=== PATIENT | female | born 1990 | race Caucasian/White ===

== ENCOUNTER 2020-05-03 14:05 | Emergency (ER) | payer OTHER ==
--- NOTE | 2020-05-03 15:23 | ED Physician Documentation ---
History of Present Illness - Stated complaint Stated Complaint: L SIDE NUMBNESS SENT BY - Chief complaint Chief Complaint: Neuro - History obtained from History obtained from: Patient - Additonal information Additional information: Patient presents to the emergency department chief complaint of numbness and fullness on the left side of her head, as well an echoing feeling in her L ear when people talk. Patient also complains of a shooting, tingling sensation in both her left medial arm and her left lateral and medial thigh. The patient states that she was treated about a week and a half ago for "swimmer's ear" and that while the pain from the seem to get better, the numbness and fullness seem to get worse. Patient states that she was not having any other symptoms outside of her head until she began to notice some shooting, tingling sensations in both her left arm and left thigh last night. Patient states she went to bed and woke in the middle of the night with a very strong, tingling sensation on her left. She turned on her right side, but this really did not seem to improve the symptoms much. When patient awoke this morning after sleeping the remainder of the night, she noted that she still had the same sensation, though slightly better than it had been. Patient denies any recent injury. No other neurologic symptoms. He does have a history of severe sciatica on the left, but does not have any pain this time. Patient also notes that the left side of her neck is somewhat chronically tight, and that she has recently had to have her massage the area because it has been bothering her. Patient denies any weakness in any of her extremities. No facial weakness. Patient is very healthy otherwise. No smoking, hypertension, or hyperlipidemia. Patient is not a diabetic. No other complaints at this time. Patient states she has never had this happen to her before. Review of Systems Ten Systems: 10 systems reviewed and negative Constitutional: reports: Reviewed and negative Eyes: reports: Reviewed and negative Ears: reports: Tinnitus/ringing Nose: reports: Reviewed and negative. denies: Rhinorrhea / runny nose, Congestion Throat: reports: Reviewed and negative Cardiac: reports: Reviewed and negative Respiratory: reports: Reviewed and negative GI: reports: Reviewed and negative : reports: Reviewed and negative Skin: reports: Reviewed and negative Musculoskeletal: reports: Reviewed and negative Neurologic: reports: Numbness, Other (Tingling, left arm and leg) Psychiatric: reports: Reviewed and negative Endocrine: reports: Reviewed and negative Immunocompromised: reports: Reviewed and negative PD PAST MEDICAL HISTORY - Past Medical History Past Medical History: No Cardiovascular: None Respiratory: None Neuro: None Endocrine/Autoimmune: None GI: None ORDER ADMINISTRATOR: None : None HEENT: None Psych: None Musculoskeletal: None Derm: None - Past Surgical History Past Surgical History: No - Present Medications Home Medications: Ambulatory Orders Medication Instructions Recorded Confirmed No Known Home Medications 05/03/20 05/03/20 - Allergies Allergies/Adverse Reactions: Allergies Allergy/AdvReac Type Severity Reaction Status Date / Time amoxicillin Allergy Dizziness Verified 05/03/20 14:14 - Social History Does the pt smoke?: No Smoking Status: Never smoker Does the pt drink ETOH?: No Does the pt have substance abuse?: No - Immunizations Immunizations are current?: Yes - POLST Patient has POLST: No PD ED PE NORMAL - Vitals Vital signs reviewed: Yes - General General: Alert and oriented X 3, No acute distress, Well developed/nourished - HEENT HEENT: Atraumatic, PERRL, EOMI, Ears normal, Moist mucous membranes, Other (No facial swelling.) - Neck Neck: Supple, no meningeal sign, No bony TTP, Other (Tenderness and muscular tightness, left trapezius distribution.) - Cardiac Cardiac: RRR, No murmur, Strong equal pulses - Respiratory Respiratory: No respiratory distress, Clear bilaterally - Abdomen Abdomen: Soft, Non tender, Non distended - Back Back: No spinal TTP, Other (Moderate tenderness, L sciatic area) - Derm Derm: Normal color, Warm and dry, No rash - Extremities Extremities: No deformity, No edema, No calf tenderness / cord - Neuro Neuro: Alert and oriented X 3, tongue presser 2-12 intact, No motor deficit, No sensory deficit (Specifically, no sensory deficit left medial arm or left thigh. Normal gait.), Normal speech - Psych Psych: Normal mood, Normal affect Results - Vitals Vitals: Vital Signs - 24 hr 05/03/20 05/03/20 05/03/20 14:10 14:18 16:22 Temperature 36.9 C 36.9 C 36.9 C Heart Rate 86 86 64 Respiratory 18 18 18 Rate Blood Pressure 119/68 119/68 115/73 O2 Saturation 100 100 100 Oxygen O2 Source Room air - Labs Labs: Laboratory Tests 05/03/20 15:31 Sodium 139 Potassium 3.9 Chloride 108 Carbon Dioxide 24 Anion Gap 7.0 BUN 13 Creatinine 0.7 Estimated GFR (MDRD) 97 Glucose 100 Calcium 8.8 - Rads (name of study) CT head Radiology: Final report received, EMP read indepedently, See rad report (mild fluid L mastoid air cells; o/w NAD) PD MEDICAL DECISION MAKING - ED course Complexity details: reviewed results, re-evaluated patient, considered differential, d/w patient ED course: Patient was worked up with labs and CT scan of the brain, all of which were unremarkable. I discussed with the patient that her symptoms do not anatomically indicate a stroke and that she is extremely low risk from this. I am not sure what is causing her extremity tingling. I am also not certain why she feels the echoing in her ear and the numbness in the side of her head. I have advised her to continue her efforts to connect with PCP and also, I have advised her to follow-up with ENT, for whom I have given her contact information. I would advise the patient to speak with her PCP about referral to neurology if the symptoms carry on for more than a week or 2. We have discussed home management of the symptoms, as well as the usual indications for return. Departure - Departure Disposition: 01 Home, Self Care Clinical Impression: Arm paresthesia, left, Left leg paresthesias, Tinnitus of left ear Condition: Stable Instructions: Tinnitus, ED Cervical Radiculopathy, ED Sciatica, ED Paraesthesias Follow-Up: Gregory Paez MD [Physician No Access] - Comments: Your CT scan and labs look very good. As we have discussed, there is no evidence of an emergent condition, and you are very low risk for something like a stroke. Additionally, your symptoms do not sound like what we would expect for even a stroke affecting sensory function. As we have discussed regarding your arm and leg tingling, it is possible that this is due to nerve root compression, that would be somewhat less common to have 2 separate nerve roots compressed at the same time. Heat and massage are the best treatments for this condition, as well as ibuprofen. As far as the ear and face symptoms you are having, ENT and neurology would be the best specialties to sort this out. Please follow-up in ENT as soon as you are able and also, please continue to go through the process of getting set up with a primary care physician through the [facility]. If ENT is not able to help with this, then the next step would be to have your primary care physician arrange for you to follow-up with a neurologist. Discharge Date/Time: 05/03/20 16:24
[2020-05-03 15:53] LABS: CALCIUM 8.8 mg/dL (8.5-10.3); CREATININE 0.7 mg/dL (0.4-1.0)
--- NOTE | 2020-05-03 15:58 | CT Report ---
PROCEDURE: HEAD WO INDICATIONS: dizzy, numbness, tinitis TECHNIQUE: Noncontrast 4.5 mm thick angled axial sections acquired from the foramen magnum to the vertex. For r adiation dose reduction, the following was used: automated exposure control, adjustment of mA and/or kV according to patient size. COMPARISON: None. FINDINGS: Image quality: Excellent. CSF spaces: Basal cisterns are patent. No extra-axial fluid collections. Ventricles are normal in size and shape. Brain: No intracranial hemorrhage, mass, or mass effect. Hugo-white matter interface is normal. Skull and face: Calvarium and visualized facial bones are intact, without suspicious lesions. Sinuses: Visualized sinuses are clear. There is mild partial fluid opacification of the left mastoid air cells. IMPRESSION: 1. No acute intracranial abnormality. 2. Mild partial fluid opacification of the left mastoid air cells may reflect a mild mastoiditis. Reviewed by: Chau Guerra MD on 05/03/2020 3:57 PM [facility] Approved by: Chau Guerra MD on 05/03/2020 3:57 PM PST Station ID: [id number]
[2020-05-03 16:23] VITALS: BP 115/73
== END 2020-05-03 16:24 | disposition home or self-care (01) ==
LOC: ED 14:05
DX: R20.2 Paresthesia of skin (principal); H93.12 Tinnitus, left ear
CPT/HCPCS: 36415; 70450; 80048; 99284; 99285

== ENCOUNTER 2020-06-27 08:00 | Outpatient (CLI) | payer OTHER ==
[2020-06-27 18:27] LABS: BASOPHILS # (AUTO) 0.1 10^3/uL (0.0-0.1); EOSINOPHILS % (AUTO) 0.8 %; HCT - HEMATOCRIT 39.7 % (37.0-47.0); HGB - HEMOGLOBIN 13.1 g/dL (12.0-16.0); LYMPHOCYTES # (AUTO) 2.1 10^3/uL (1.5-3.5); LYMPHOCYTES % (AUTO) 40.1 %; MEAN CORPUSCULAR HEMOGLOBIN 30.8 pg (27.0-31.0); MEAN CORPUSCULAR VOLUME 93.2 fL (81.0-99.0); MEAN PLATELET VOLUME 10.8 fL (7.9-10.8); MONOCYTES # (AUTO) 0.4 10^3/uL (0.0-1.0); NEUTROPHILS # (AUTO) 2.6 10^3/uL (1.5-6.6); NEUTROPHILS % (AUTO) 50.9 %; PLT - PLATELET COUNT 289 10^3/uL (130-450); RED BLOOD COUNT 4.26 10^6/uL (4.20-5.40); RED CELL DISTRIBUTION WIDTH 12.5 % (12.0-15.0); WHITE BLOOD COUNT 5.2 x10^3/uL (4.8-10.8)
[2020-06-27 18:50] LABS: ALBUMIN 4.2 g/dL (3.2-5.5); ALBUMIN/GLOBULIN RATIO 1.2 (1.0-2.2); BILIRUBIN,TOTAL 0.5 mg/dL (0.2-1.0); CALCIUM 10.1 mg/dL (8.5-10.3); CREATININE 0.8 mg/dL (0.4-1.0); POTASSIUM 4.3 mmol/L (3.5-5.0); TOTAL PROTEIN 7.6 g/dL (6.7-8.2)
[2020-06-27 18:59] LABS: THYROID STIMULATING HORMONE 1.6 uIU/mL (0.34-5.60)
== END 2020-06-27 23:59 | disposition home or self-care (01) ==
LOC: LAB.WCP 08:00
PROVIDERS: ATTEND Registered Nurse
DX: G51.9 Disorder of facial nerve, unspecified (principal); L65.9 Nonscarring hair loss, unspecified; Z86.32 Personal history of gestational diabetes
CPT/HCPCS: 36415; 80053; 84403; 84443; 85025

== ENCOUNTER 2020-07-12 14:02 | Outpatient (CLI) | payer OTHER ==
--- NOTE | 2020-07-12 14:32 | XRAY Report ---
PROCEDURE: Chest 2 View X-Ray INDICATIONS: CHEST PX, UNSPECIFIED TECHNIQUE: 2 view(s) of the chest. COMPARISON: None. FINDINGS: Surgical changes and devices: None. Lungs and pleura: No pleural effusions or pneumothorax. Lungs are clear. Mediastinum: Mediastinal contours are normal. Heart size is normal. Bones and chest wall: No suspicious bony abnormalities. Soft tissues appear unremarkable. IMPRESSION: No acute disease Reviewed by: Loco Winn MD on 07/12/2020 2:31 PM PDT Approved by: Loco Winn MD on 07/12/2020 2:31 PM PDT Station ID: [id number]
== END 2020-07-12 23:59 | disposition home or self-care (01) ==
LOC: DI.N 14:02
PROVIDERS: ATTEND Nurse Practitioner
DX: R07.9 Chest pain, unspecified (principal)

== ENCOUNTER 2020-09-15 10:12 | Outpatient (CLI) | payer OTHER ==
--- NOTE | 2020-09-15 13:40 | CARDIAC PROCEDURE NOTE ---
Stress Test Report Service Date: 09/15/20 Ordering Provider: Araceli Bo NP Indication for Test: Chest pain, cardiac arrhythmia Cardiac Risk Factors: Family history of early heart disease in her grandfather (in his 50s). Type of Stress Test: Exercise Treadmill Test (ETT) Procedure: After signing informed consent, the patient underwent a Ihsan-protocol treadmill stress test. No cardiac imaging was ordered with this test. Resting heart rate: 68 Peak HR: 164 (87% predicted maximum heart rate for age) Resting blood pressure: 94/64. Peak blood pressure: 139/60 The patient exercised for 9 minutes on a Ihsan-protocol treadmill stress test. She achieved a peak heart rate of 164 (87% p.m. HR) and 10.16 METS. Patient had mild shortness of breath. She had no chest pain. She rated her perceived exertion at 12-14/20 on the Teodoro scale at peak. Oxygen saturation was 93 to 99% on room air throughout the test. Resting EKG: Sinus rhythm, within normal limits. EKG at peak: No new ST-segment or T-wave changes develop. Summary: 1) Normal resting EKG. 2) Normal stress test with no EKG changes to suggest ischemia. 3) No significant arrhythmias were seen. 4) Fair-Good exercise tolerance. Impression: 1) Normal stress test. 2) This patient's overall cardiac risk: Low. Recommendations: 1) Consider obtaining a 24-hour Holter to evaluate her "palpitations". 2) Consider obtaining a complete Echo with Doppler to evaluate cardiac structure and function.
== END 2020-09-15 10:13 | disposition home or self-care (01) ==
LOC: DI 10:12
PROVIDERS: ATTEND Registered Nurse
DX: I49.9 Cardiac arrhythmia, unspecified (principal); R07.9 Chest pain, unspecified; Z82.49 Family history of ischemic heart disease and other diseases of the circulatory system
CPT/HCPCS: 93016; 93018

== ENCOUNTER 2021-01-26 09:12 | Outpatient (CLI) | payer OTHER ==
--- NOTE | 2021-01-26 09:43 | CARDIAC PROCEDURE NOTE ---
Stress Test Report Service Date: 01/26/21 Service Time: 09:30 Ordering Provider: Araceli Bo FNP-C Indication for Test: Assess exercise tolerance and for an ischemic contribution to patient's episodic palpitations, sometimes associated with lightheadedness. 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 She is under increased psychosocial stress with her 's career and recent deployment overseas. She reports that for about 1 year she has had episodic palpitations, that have gradually increased in frequency and severity over the past few months. They are most notable at night upon reclining prior to sleep, but they can also occur during the daytime with a frequency that most recently is about 2-3 times weekly, with no clear precipitating nor alleviating factors. Sometimes when they occur during daytime hours the palpitations can be associated with lightheadedness. -She remains quite physically active and describes a daily exercise regimen that includes nearly an hour of high intensity activities, including 30 minutes on the treadmill and some free weight lifting. Very rarely while doing the latter activity she feels some chest discomfort, but not typically at other times when having her palpitations, and exertion does not provoke her palpitation episodes. -Earlier this spring she was prescribed metoprolol succinate but never actually took it and at a follow-up visit she was prescribed propranolol 10 mg to be taken as needed up to every 8 hours, to better target anxiety. She reports having taken propranolol on 2 or 3 occasions with no real attenuation of her symptoms. She has received a referral for outpatient rhythm monitoring to be done in [place], but has not yet scheduled this testing. Cardiac Risk Factors: Her only classic ASCVD risk factor is minor family history, with maternal grandfather having VT's, stents and cardiac in his 60's; she denies history of hypertension, diabetes, hyperlipidemia and ever cigarette smoking. Type of Stress Test: ETT with Echocardiography Procedure: -Exercise Treadmill Test- After signing informed consent, resting echo images were obtained and the patient performed treadmill exercise using a Ihsan protocol. The patient exercised for 8 minutes 54 seconds and achieved a peak heart rate of 167 (89 percent predicted maximum heart rate for age), and an estimated workload of 10.2 METS. The test was terminated due to fatigue/shortness of breath after having achieved target heart rate. Resting heart rate: 102 Peak heart rate: 167 Normal response to exercise. Resting BP: 112/80 Peak BP: 136/69 Normal BP at rest with increase with exercise that is likely appropriate for age and level of self-reported conditioning. Rhythm during exercise: Sinus throughout, without ectopy. Symptoms: No report of chest discomfort, palpitations or lightheadedness. EKG at rest showed normal sinus rhythm, with left atrial abnormality and borderline QTc interval (467 ms); QRS/ST/T morphologies all within normal range. EKG at peak stress showed no ischemia by EKG criteria. In Recovery heart rate and BP rapidly and normally returned to baseline levels. Echo imaging was performed at rest and with stress will be reported separately. IJavid MD, was present throughout this treadmill stress echocardiogram and supervised it in its entirety. Summary: 1) Exercise tolerance slightly below average for age as evidenced by WEI of 6%, though she did achieve 10.2 METS. 2) Borderline resting EKG, but with interpretable ST segments. 3) Adequate level of exercise was achieved on this treadmill stress test. 4) Likely normal BP response to exercise. 5) No ischemic changes by EKG criteria were seen at peak stress. 6) Echo image interpretation reveals normal left ventricular size and resting systolic function, with appropriate hyperdynamic augmentation in all segments, thus no echo evidence of inducible ischemia. See separate echo report for more detail. CONCLUSIONS: 1) Normal/low risk exercise stress treadmill results. 2) Patient is advised to schedule the recommended ambulatory rhythm monitoring and ascertain that timing of next visit with Ms Bo will allow for the latter to receive the completed monitoring analysis.
== END 2021-01-26 09:13 | disposition home or self-care (01) ==
LOC: DI 09:12
PROVIDERS: ATTEND Registered Nurse
DX: R00.2 Palpitations (principal); I49.9 Cardiac arrhythmia, unspecified; R07.9 Chest pain, unspecified; Z82.49 Family history of ischemic heart disease and other diseases of the circulatory system
CPT/HCPCS: 93350

== ENCOUNTER 2023-04-18 08:00 | Outpatient (CLI) | payer OTHER ==
[2023-04-18 16:25] LABS: BILIRUBIN,URINE NEGATIVE (NEGATIVE); GLUCOSE, URINE (UA) NEGATIVE (NEGATIVE); KETONES,URINE (UA) TRACE mg/dL (NEGATIVE); LEUKOCYTE ESTERASE, URINE NEGATIVE (NEGATIVE); NITRITE,URINE NEGATIVE (NEGATIVE); OCCULT BLOOD,URINE NEGATIVE (NEGATIVE); PH,URINE 5.5 PH (5.0-7.5); PROTEIN,URINE TRACE mg/dL (NEGATIVE); UROBILINOGEN,URINE 0.2 (NORMAL) E.U./dL (NORMAL)
[2023-04-18 16:34] LABS: CLARITY,URINE CLOUDY (CLEAR)
[2023-04-18 16:48] LABS: AMORPHOUS SEDIMENT,UR Marked /LPF; BACTERIA,URINE Rare /HPF (None Seen); RBC,URINE 0-5 /HPF (0-5); SQUAMOUS EPITHELIAL CELL,UR RARE Squamous (<= Few); WBC,URINE 0-3 /HPF (0-5)
== END 2023-04-18 23:59 | disposition home or self-care (01) ==
LOC: LAB.WC 08:00
PROVIDERS: ATTEND Nurse Practitioner
DX: Z34.90 Encounter for supervision of normal pregnancy, unspecified, unspecified trimester (principal)
CPT/HCPCS: 81001; 87086

== ENCOUNTER 2023-04-24 11:46 | Outpatient (CLI) | payer OTHER ==
[2023-04-24 12:20] LABS: BASOPHILS # (AUTO) 0.1 10^3/uL (0.0-0.1); BASOPHILS % (AUTO) 0.8 %; EOSINOPHILS # (AUTO) 0.2 10^3/uL (0.0-0.7); EOSINOPHILS % (AUTO) 2.3 %; HCT - HEMATOCRIT 36.3 % (37.0-47.0); HGB - HEMOGLOBIN 12.5 g/dL (12.0-16.0); LYMPHOCYTES % (AUTO) 25.2 %; MEAN CORPUSCULAR HEMOGLOBIN 30.1 pg (27.0-31.0); MEAN CORPUSCULAR HGB CONC 34.4 g/dL (32.0-36.0); MEAN CORPUSCULAR VOLUME 87.5 fL (81.0-99.0); MEAN PLATELET VOLUME 10.4 fL (7.9-10.8); MONOCYTES # (AUTO) 0.6 10^3/uL (0.0-1.0); MONOCYTES % (AUTO) 7.2 %; NEUTROPHILS % (AUTO) 64.2 %; PLT - PLATELET COUNT 272 10^3/uL (130-450); RED BLOOD COUNT 4.15 10^6/uL (4.20-5.40); RED CELL DISTRIBUTION WIDTH 12.8 % (12.0-15.0); WHITE BLOOD COUNT 7.7 x10^3/uL (4.8-10.8)
[2023-04-25 03:10] LABS: HBsAG SCREEN Negative (Negative)
[2023-04-25 04:09] LABS: HCV AB Non Reactive (Non Reactive)
[2023-04-25 05:12] LABS: HIV SCREEN 4TH GENERATION Non Reactive (Non Reactive); RPR Non Reactive (Non Reactive)
[2023-04-25 09:09] LABS: VARICELLA-ZOSTER AB IGG 167 index (Immune >165)
== END 2023-04-24 11:47 | disposition home or self-care (01) ==
LOC: LAB 11:46
PROVIDERS: ATTEND Nurse Practitioner
DX: Z34.90 Encounter for supervision of normal pregnancy, unspecified, unspecified trimester (principal)
CPT/HCPCS: 36415; 85025; 86592; 86762; 86787; 86803; 86850; 86900; 86901; 87340; 87389

== ENCOUNTER 2023-04-29 15:27 | Outpatient (CLI) | payer OTHER ==
--- NOTE | 2023-04-29 16:57 | Ultrasound Report ---
PROCEDURE: OB 1st Trimester INDICATIONS: POSITIVE TEST OUTSIDE/PRIOR DATING DATA: Last menstrual period (LMP): 02/22/2023. LMP-based estimated date of delivery (HARRIET): 11/29/2023. First dating scan (date and location): 04/29/2023. Estimated date of delivery (HARRIET) from first dating scan: 11/30/2023. TECHNIQUE: Real-time scanning was performed of the fetus and maternal pelvic organs, with image documentation. COMPARISON: None. FINDINGS: Intrauterine gestational sac present. Embryo: Helotes-rump length measures 2.6 cm corresponding to 9 weeks 2 days. Heart rate: 1 60 bpm. bpm. Other: No perigestational fluid collection. Sac is not clearly identified. Measurement variability in dating: +/- 4 weeks by LMP, +/- 7 days by mean sac diameter (use before 6 weeks gestation if crown-rump length not able to be measured), +/- 5 days by crown-rump length (6-12 weeks gestation). Maternal organs: Left ovary is not visualized. IMPRESSION: Single intrauterine is present with gestational age measuring 9 weeks 0 days. Reviewed by: Stacia Dinh MD on 04/29/2023 4:56 PM PST Approved by: Stacia Dinh MD on 04/29/2023 4:56 PM PST Station ID: [id number]
== END 2023-04-29 15:28 | disposition home or self-care (01) ==
LOC: DI 15:27
PROVIDERS: ATTEND Nurse Practitioner
DX: Z34.91 Encounter for supervision of normal pregnancy, unspecified, first trimester (principal)

== ENCOUNTER 2023-05-16 08:00 | Outpatient (CLI) | payer OTHER ==
[2023-05-16 20:19] LABS: CHLAMYDIA TRACHOMATIS DNA NEGATIVE (NEGATIVE); NEISSERIA GONORRHOEAE DNA NEGATIVE (NEGATIVE); TRICHOMONAS VAGINALIS DNA NEGATIVE (NEGATIVE)
== END 2023-05-16 23:59 | disposition home or self-care (01) ==
LOC: LAB.WC 08:00
PROVIDERS: ATTEND Obstetrics & Gynecology
DX: Z11.3 Encounter for screening for infections with a predominantly sexual mode of transmission (principal)
CPT/HCPCS: 87491; 87591; 87661

== ENCOUNTER 2023-05-28 12:01 | Outpatient (CLI) | payer OTHER | END 2023-05-28 12:02 | disposition home or self-care (01) | LOC: LAB 12:01 | PROVIDERS: ATTEND Obstetrics & Gynecology | DX: O09.91 Supervision of high risk pregnancy, unspecified, first trimester (principal) ==

== ENCOUNTER 2023-07-19 15:23 | Outpatient (CLI) | payer OTHER ==
--- NOTE | 2023-07-20 17:59 | Ultrasound Report ---
PROCEDURE: OB Anatomy Scan INDICATIONS: SUPERVISION OF OUTSIDE/PRIOR DATING DATA: Last menstrual period (LMP): 02/22/2023. LMP-based estimated date of delivery (HARRIET): 11/29/2023. First dating scan (date and location): 04/29/2023. Estimated date of delivery (HARRIET) from first dating scan: 11/30/2023. The below data below was generated using the working HARRIET of 11/29/2023 TECHNIQUE: Real-time scanning was performed of the fetus, with image documentation and biometric measurements. Endovaginal scanning: Not performed. COMPARISON: 04/29/2023 FINDINGS: General: A single living intrauterine gestation is present. Presentation: Variable Placenta: Placental position is posterior, without previa. Amniotic fluid index: 12 cm, within normal limits for gestational age. heart rate: 150 beats per minute. Maternal cervical canal: 6.2 cm long; normal length is 2.5 cm or more. biometrics: Biparietal diameter: 4.65 cm, 20 weeks, 0 day. 14.5% Head circumference: 18.3 cm, 20 weeks, 5 days, 27.8% Abdominal circumference: 15.36 cm, 20 weeks, 4 days, 28.8% Femur length: 3.7 cm, 21 weeks, 6 days, 70.7% Estimated gestational age from initial scan: 21 weeks, 4 days Composite gestational age from present scan: 20 weeks, 4 days Estimated weight and percentile: 396.7 g, 48.2% Measurement variability in biometric dating: +/- 10 days from 12-20 weeks gestation, +/- 2 weeks from 20-30 weeks gestation, +/- 3 weeks at 30 weeks gestation or later. Anatomic survey: Neuro: Ventricles are normal at less than 10 mm. Cisterna magna is normal at 3-11 mm. Cerebellum i s normal in size and morphology. Nuchal skin fold: Normal at less than 6 mm between 14 and 20 weeks gestational age. Face: Nose and lips, facial profile are normal. Spine: No evidence for spina bifida. Heart: 4-chambered heart is present, with normal ventricular outflow tracts. Diaphragm: Diaphragm is intact. Stomach: Left-sided stomach is present. Kidneys: No hydronephrosis. Normal is less than 5 mm in 2nd trimester, less than 7 mm in 3rd trimester. Cord: 3 vessel cord has orthotopic insertion. Bladder: Normal in size. Extremities: All 4 extremities are visualized. IMPRESSION: 1. Single live intrauterine gestation with fetus in variable presentation. heart rate is 150 bp m. Normal ELIZABETH at 12.0 cm. Normal growth with estimated weight at 48.2%. 2. Normal anatomic survey. Reviewed by: Clifton Spence MD on 07/20/2023 5:57 PM PDT Approved by: Clifton Spence MD on 07/20/2023 5:57 PM PDT Station ID: [id number]
== END 2023-07-19 15:24 | disposition home or self-care (01) ==
LOC: DI 15:23
PROVIDERS: ATTEND Obstetrics & Gynecology
DX: O09.92 Supervision of high risk pregnancy, unspecified, second trimester (principal)

== ENCOUNTER 2023-08-01 08:00 | Outpatient (CLI) | payer OTHER ==
[2023-08-02 00:53] LABS: BACTERIAL VAGINOSIS DNA POSITIVE (NEGATIVE); CANDIDA GLABRATA DNA POSITIVE (NEGATIVE); CANDIDA GROUP DNA POSITIVE (NEGATIVE); CANDIDA KRUSEI DNA NEGATIVE (NEGATIVE); TRICHOMONAS VAGINALIS DNA NEGATIVE (NEGATIVE)
== END 2023-08-01 23:59 | disposition home or self-care (01) ==
LOC: LAB.WC 08:00
PROVIDERS: ATTEND Obstetrics & Gynecology
DX: N89.8 Other specified noninflammatory disorders of vagina (principal)
CPT/HCPCS: 81514

== ENCOUNTER 2023-09-09 10:50 | Outpatient (CLI) | payer OTHER ==
[2023-09-09 11:00] LABS: HCT - HEMATOCRIT 33.3 % (37.0-47.0); HGB - HEMOGLOBIN 11.4 g/dL (12.0-16.0); MEAN CORPUSCULAR HEMOGLOBIN 31.9 pg (27.0-31.0); MEAN CORPUSCULAR HGB CONC 34.2 g/dL (32.0-36.0); MEAN CORPUSCULAR VOLUME 93.3 fL (81.0-99.0); MEAN PLATELET VOLUME 10.7 fL (7.9-10.8); RED BLOOD COUNT 3.57 10^6/uL (4.20-5.40); RED CELL DISTRIBUTION WIDTH 12.6 % (12.0-15.0); WHITE BLOOD COUNT 9.4 x10^3/uL (4.8-10.8)
[2023-09-10 08:19] LABS: RPR Non Reactive (Non Reactive)
== END 2023-09-09 10:51 | disposition home or self-care (01) ==
LOC: LAB 10:50
PROVIDERS: ATTEND Obstetrics & Gynecology
DX: O09.92 Supervision of high risk pregnancy, unspecified, second trimester (principal)
CPT/HCPCS: 36415; 85027; 86592

== ENCOUNTER 2023-10-15 13:19 | Outpatient (CLI) | payer OTHER ==
[2023-10-15 13:37] LABS: HCT - HEMATOCRIT 32.2 % (37.0-47.0); HGB - HEMOGLOBIN 10.6 g/dL (12.0-16.0); MEAN CORPUSCULAR HEMOGLOBIN 30.8 pg (27.0-31.0); MEAN CORPUSCULAR HGB CONC 32.9 g/dL (32.0-36.0); MEAN CORPUSCULAR VOLUME 93.6 fL (81.0-99.0); MEAN PLATELET VOLUME 11.6 fL (7.9-10.8); RED BLOOD COUNT 3.44 10^6/uL (4.20-5.40); RED CELL DISTRIBUTION WIDTH 13.2 % (12.0-15.0)
[2023-10-15 14:02] LABS: ALBUMIN 3.4 g/dL (3.2-5.5); ALBUMIN/GLOBULIN RATIO 1.1 (1.0-2.2); BILIRUBIN,TOTAL 0.4 mg/dL (0.2-1.0); CALCIUM 8.9 mg/dL (8.5-10.3); CREATININE 0.7 mg/dL (0.6-1.3); POTASSIUM 3.3 mmol/L (3.5-4.5); TOTAL PROTEIN 6.4 g/dL (6.4-8.9)
[2023-10-15 14:11] LABS: CREATININE,URINE 31.3 mg/dL; PROTEIN/CREATININE RATIO,URINE 0.2 (<=0.2)
== END 2023-10-15 13:20 | disposition home or self-care (01) ==
LOC: LAB 13:19
PROVIDERS: ATTEND Nurse Practitioner
DX: O09.893 Supervision of other high risk pregnancies, third trimester (principal); O99.891 Other specified diseases and conditions complicating pregnancy; R10.11 Right upper quadrant pain
CPT/HCPCS: 36415; 80053; 82570; 83615; 84156; 85027

== ENCOUNTER 2023-10-23 12:36 | Outpatient (CLI) | payer OTHER ==
--- NOTE | 2023-10-23 17:30 | Ultrasound Report ---
PROCEDURE: OB Follow up INDICATIONS: ABN GLUCOSE TEST OUTSIDE/PRIOR DATING DATA: Last menstrual period (LMP): 02/22/2023. LMP-based estimated date of delivery (HARRIET): 11/29/2023. First dating scan (date and location): 04/29/2023. Estimated date of delivery (HARRIET) from first dating scan: 11/30/2023. The below data below was generated using the clinical HARRIET of 11/29/2023 TECHNIQUE: Real-time scanning was performed of the fetus, with image documentation and biometric measurements. Endovaginal scanning: Not performed. COMPARISON: 07/19/2023 FINDINGS: General: A single living intrauterine gestation is present. Presentation: Vertex Placenta: Placental position is posterior, without previa. Amniotic fluid index: 13.3 cm, within normal limits for gestational age. heart rate: 143 beats per minute. Maternal cervical canal: 4.6 cm long; normal length is 2.5 cm or more. biometrics: Biparietal diameter: 8.1 cm, 32 weeks 3 days, 4% Head circumference: 30.0 cm, 33 weeks 2 days, 2% Abdominal circumference: 29 cm, 33 weeks 0 days, 12% Femur length: 6.8 cm, 35 weeks 0 days, 49% Estimated gestational age from initial scan: 34 weeks 5 days Composite gestational age from present scan: 33 weeks 3 days Estimated weight and percentile: 2221 g, 17% Measurement variability in biometric dating: +/- 10 days from 12-20 weeks gestation, +/- 2 weeks from 20-30 weeks gestation, +/- 3 weeks at 30 weeks gestation or more. Other: Not applicable. IMPRESSION: 1.Single live intrauterine consistent with 33 weeks and 3 days. 2.Biparietal diameter and head circumference are less than the 10th percentile. Estimated weigh t is at the 17th percentile. Reviewed by: James Schneider MD on 10/23/2023 4:29 PM [facility] Approved by: James Schneider MD on 10/23/2023 4:29 PM [facility] Station ID: [id number]
== END 2023-10-23 12:37 | disposition home or self-care (01) ==
LOC: DI 12:36
PROVIDERS: ATTEND Nurse Practitioner
DX: O99.810 Abnormal glucose complicating pregnancy (principal); Z3A.33 33 weeks gestation of pregnancy

== ENCOUNTER 2023-11-07 08:00 | Outpatient (CLI) | payer OTHER | END 2023-11-07 23:59 | disposition home or self-care (01) | LOC: LAB.WC 08:00 | PROVIDERS: ATTEND Obstetrics & Gynecology | DX: Z36.85 Encounter for antenatal screening for Streptococcus B (principal) | CPT/HCPCS: 87797 ==

== ENCOUNTER 2023-11-22 12:26 | Outpatient (CLI) | payer OTHER ==
--- NOTE | 2023-11-22 19:09 | Ultrasound Report ---
PROCEDURE: OB Follow up INDICATIONS: ABN GLUCOSE TOLERENCE OUTSIDE/PRIOR DATING DATA: Last menstrual period (LMP): 02/22/2023. LMP-based estimated date of delivery (HARRIET): 11/29/2023. First dating scan (date and location): 04/29/2023. Estimated date of delivery (HARRIET) from first dating scan: 11/30/2023. The below data below was generated using the clinical HARRIET of 11/29/2023 TECHNIQUE: Real-time scanning was performed of the fetus, with image documentation and biometric measurements. Endovaginal scanning: Not performed. COMPARISON: 10/23/2023, 07/19/2023, 04/29/2023 FINDINGS: General: A single live intrauterine gestation is present. Presentation: Vertex Placenta: Placental position is posterior, without previa. Amniotic fluid index: 13.6 cm, within normal limits for gestational age. Largest pocket: 4.5 cm heart rate: 130 beats per minute. Maternal cervical canal: 4 cm long; normal length is 2.5 cm or more. biometrics: Biparietal diameter: 8.9 cm equals 36 weeks 2 days Head circumference: 34 cm equals 39 weeks 1 day Abdominal circumference: 35.3 cm equals 39 weeks 2 days Femur length: 7.7 cm equals 39 weeks 2 days Estimated gestational age from initial scan: 39 weeks 0 days Composite gestational age from present scan: 38 weeks 4 days Estimated weight and percentile: 3614 g, 66th percentile Measurement variability in biometric dating: +/- 10 days from 12-20 weeks gestation, +/- 2 weeks from 20-30 weeks gestation, +/- 3 weeks at 30 weeks gestation or more. Other: Not applicable. IMPRESSION: The estimated weight is 3614 g, corresponding to the 66th percentile Reviewed by: Steve Flores MD on 11/22/2023 6:08 PM [facility] Approved by: Steve Flores MD on 11/22/2023 6:08 PM [facility] Station ID: [id number]
== END 2023-11-22 12:27 | disposition home or self-care (01) ==
LOC: DI 12:26
PROVIDERS: ATTEND Nurse Practitioner
DX: O99.810 Abnormal glucose complicating pregnancy (principal); Z3A.38 38 weeks gestation of pregnancy

== ENCOUNTER 2023-11-26 05:50 | Inpatient (IN) | payer OTHER ==
[2023-11-26] MEDS ORDERED: ceFAZolin (2G) 2 GM in SODIUM CHLORIDE 0.9% MINIBAG 100 ML IV ONE (06:00)
[2023-11-26 06:32] LABS: BASOPHILS # (AUTO) 0.1 10^3/uL (0.0-0.1); BASOPHILS % (AUTO) 0.8 %; EOSINOPHILS # (AUTO) 0.1 10^3/uL (0.0-0.7); EOSINOPHILS % (AUTO) 0.8 %; HCT - HEMATOCRIT 33.6 % (37.0-47.0); HGB - HEMOGLOBIN 11.2 g/dL (12.0-16.0); LYMPHOCYTES # (AUTO) 2.2 10^3/uL (1.5-3.5); MEAN CORPUSCULAR HEMOGLOBIN 30.9 pg (27.0-31.0); MEAN CORPUSCULAR HGB CONC 33.3 g/dL (32.0-36.0); MEAN CORPUSCULAR VOLUME 92.8 fL (81.0-99.0); MEAN PLATELET VOLUME 12.1 fL (7.9-10.8); MONOCYTES # (AUTO) 0.5 10^3/uL (0.0-1.0); MONOCYTES % (AUTO) 7.4 %; NEUTROPHILS # (AUTO) 4.4 10^3/uL (1.5-6.6); NEUTROPHILS % (AUTO) 60.6 %; PLT - PLATELET COUNT 195 10^3/uL (130-450); RED BLOOD COUNT 3.62 10^6/uL (4.20-5.40); RED CELL DISTRIBUTION WIDTH 13.1 % (12.0-15.0); WHITE BLOOD COUNT 7.2 x10^3/uL (4.8-10.8)
--- NOTE | 2023-11-26 07:38 | HISTORY & PHYSICAL EXAMINATION ---
Admit History - : 4 Parity: 3 Risk/History: positive: Previous Complications This : positive: Gestational diabetes Smoking Status: Never smoker - Mother's Labs Mother's Blood Type: positive: O Mother's RH: positive: Positive GBS: positive: Group B Step Negative Rubella Status: positive: Equivocal - Other Maternal History Other Maternal History: HPI: Patient is a 33-year-old -0-0-3 at 39 weeks 4 days gestation here for repeat low-transverse section. She has good movement. Denies loss of fluid. No YARBROUGH/BV or RUQP. No vaginal bleeding. Denies nausea and vomiting. Denies urinary urgency or dysuria. All other symptoms reviewed and were negative except per HPI. Course LMP: 02/22/23 HARRIET by LMP: 11/29/23 US:04/29/2023 @ 9+0 c/w LMP Final HARRIET: 11/29/2023 PROBLEMS: Section X3 GDM last 2 pregnancies: -Could not bring herself to start insulin. Started metformin 11/06. - NSTs and monthly growth scans ordered. -10/22: EFW 2220 g, 17%. AC also 17%. Mostly given by head circumference and BPD. FL: 49% HSV - Suppression started at 36 weeks. 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 Now home and very supportive. Daughter Mary- 8th grade Sons Jose and Pasha. 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 Probably moving to [place], [place] in January Pre- Weight:143 BMI: 23.16 Blood type: O+ Antibody: Negative CBC: 12.5/36.3 PLT 272 RUB: Non immune (Equivocal) 11 VZV:Immune HBsAg: NEG HepC: NR RPR/AB-EIA: NR HIV: NR PAP:12/21/20 - normal GC/CT:Negative HSV: Positive Genetic testing:NIPT- Negative AFP: 06/06 Covid:had virus 2020/no vax/declined today Flu:declined FAS:WNL Placenta:posterior w/o previa Cord:3VC ELIZABETH:12cm EFW:396.7g 48.2%ile 50gm OGCT: Normal profiling early. Will repeat in late second trimester. 3HR GTT: TDAP: 09/11 Breast Pump: 09/11 3rd trimester H/H:11.4/32/234 GBS:11/07/23- neg Delivery plan:Repeat scheduled for 11/26/2023. Contraception: not sterilization. PMH Gestational diabetes PSH Previous x 3 OB History -0-0-3 1. 12/30/2009, 41 weeks, section, female, 8 pounds 9 ounces, distress 2. 08/04/2015, 41 weeks, section, male, 8 pounds 6 ounces, failed TOLAC 3. 04/21/2018, 41 weeks, section, male, 6 pounds 11 ounces, repeat section SH Denies tobacco, alcohol, drugs Family History Sister: Psychiatric care Allergies Amoxicillin: Rash Medications Metformin Valtrex Low-dose aspirin Physical exam: General: Alert, oriented, no acute distress Head: Normal cephalic atraumatic Eyes: PERRLA, extraocular motions intact. Respiratory: Normal rate of respiration. No accessory muscle use, normal respiratory effort. Cardiovascular: Regular rate and rhythm Abdomen: Gravid, nontender, nondistended Extremities: Normal range of motion Neuro: Oriented x3. Normal movements Psych: Appropriate mood and affect. Normal judgment and insight FHT: 145 beats minute baseline, moderate barrett-blue variability, accelerations present, no decelerations. Reactive NST [place]: Quiescent Plan 33-year-old -0-0-3 at 39 weeks 4 days gestation here for repeat section 1. Repeat section - section was recommended. Risks, benefits and alternatives were discussed including but not limited to infection, bleeding that may require blood products or hysterectomy for life saving measures, injury to surrounding organs including but not limited to bowel, bladder, ureters, tubes and ovaries and/or the baby. Should injury occur it could require longer/additional surgery to repair. The patient stated understanding and desired to proceed. All questions were answered posed by patient. 2. 39 weeks gestation 3. Gestational diabetes, A2 managed with oral antihyperglycemic's 4. Previous low-transverse section x 3 5. Vulvovaginal HSV - HPI Current EDU 11/29/23 Gestation 39 Weeks and 4 Days 4 Vital Signs Temperature 97.8 F 11/26/23 06:09 Heart Rate 66 11/26/23 06:09 Respiratory Rate 18 11/26/23 06:09 Blood Pressure 111/67 11/26/23 06:09 Temperature 97.8 F 11/26/23 06:09 Heart Rate 66 11/26/23 06:09 Respiratory Rate 18 11/26/23 06:09 Blood Pressure 111/67 11/26/23 06:09 O2 Saturation If not protocol: Oxygen Flow, liters/minute Meds/Allgy - Home Medications Home Medications: Ambulatory Orders Medication Instructions Recorded Confirmed Ferrous Sulfate Liquid [Feosol 5 ml ORAL DAILY 11/25/23 11/25/23 Liquid] Pnv No.121/Iron/Folic Acid 1 tab ORAL DAILY 11/25/23 11/25/23 [ Multivitamin Tablet] metFORMIN [Glucophage] 500 mg ORAL BID 11/25/23 11/25/23 valACYclovir [Valtrex] 500 mg ORAL BID 11/25/23 11/25/23 - Allergies Allergies/Adverse Reactions: Allergies Allergy/AdvReac Type Severity Reaction Status Date / Time amoxicillin Allergy Dizziness Verified 12/11/21 17:20 Physical - Abdominal Exam Vital Signs: Temp Pulse Resp BP Pulse Ox O2 Flow Rate 97.8 F 66 18 111/67 11/26/23 06:09 11/26/23 06:09 11/26/23 06:09 11/26/23 06:09 Plan for Labor - Plan For Labor I expect patient to be DC'd or transferred within 96 hours.: Yes
[2023-11-26] MEDS: ACETAMINOPHEN 500 MG TABLET PO ONE (07:49)
[2023-11-26] MEDS: CITRIC ACID/SODIUM CITRATE 15 ML UDC PO ONE (07:49)
[2023-11-26] MEDS: LACTATED RINGERS 1,000 ML IV SCH (08:04)
--- NOTE | 2023-11-26 08:34 | ANESTHESIA ---
Pre-Anesthesia VS, & Labs - Diagnosis Hx of CS - Procedure Repeat C section Vital Signs: Temp Pulse Resp BP Pulse Ox O2 Flow Rate 37 C 69 16 110/67 98 11/26/23 08:01 11/26/23 08:01 11/26/23 08:01 11/26/23 08:01 11/26/23 08:01 Height: 5 ft 6 in Weight (kg): 82.554 kg Body Mass Index: 29.3 BMI Classification: Overweight - NPO >8 hours - Is Patient ?: Yes - Lab Results Current Lab Results: Laboratory Tests 11/26/23 07:40: POC Whole Bld Glucose 91 11/26/23 06:12: WBC 7.2, RBC 3.62 L, Hgb 11.2 L, Hct 33.6 L, MCV 92.8, MCH 30.9, MCHC 33.3, RDW 13.1, Plt Count 195, MPV 12.1 H, Neut # (Auto) 4.4, Lymph # (Auto) 2.2, [place] # (Auto) 0.5, Eos # (Auto) 0.1, Baso # (Auto) 0.1, Absolute Nucleated RBC 0.00, Nucleated RBC % 0.0 11/26/23 06:12: Blood Type O POSITIVE, Antibody Screen NEGATIVE Lab results reviewed: Yes Fish Bones: 11/26/23 06:12 Home Medications and Allergies Home Medications: Ambulatory Orders Ferrous Sulfate Liquid [Feosol Liquid] 5 ml ORAL DAILY 11/25/23 Pnv No.121/Iron/Folic Acid [ Multivitamin Tablet] 1 tab ORAL DAILY 11/25/23 metFORMIN [Glucophage] 500 mg ORAL BID 11/25/23 valACYclovir [Valtrex] 500 mg ORAL BID 11/25/23 Active Medications Lactated Ringer's (Lr) 1,000 mls @ 125 mls/hr IV .Q8H NAYELY Last Admin: 11/26/23 08:04 Dose: 125 mls/hr Ferrous Sulfate Liquid [Feosol Liquid] 5 ml ORAL DAILY 11/25/23 Pnv No.121/Iron/Folic Acid [ Multivitamin Tablet] 1 tab ORAL DAILY 11/25/23 metFORMIN [Glucophage] 500 mg ORAL BID 11/25/23 valACYclovir [Valtrex] 500 mg ORAL BID 08/05/24 Allergies/Adverse Reactions: Allergies Allergy/AdvReac Type Severity Reaction Status Date / Time amoxicillin Allergy Dizziness Verified 12/11/21 17:20 Anes History & Medical History - Anesthetic History Anesthesia Complications: reports: No previous complications - Medical History Cardiovascular: reports: None, Other (2020, had a stressful period of life, experienced some palpitations and chest pressure; had an echo and a treadmill test which were normal; she hasn't had any problems since) Pulmonary: reports: None Gastrointestinal: reports: None Urinary: reports: None Neuro: reports: None Musculoskeletal: reports: None Endocrine/Autoimmune: reports: Other Blood Disorders: reports: None Skin: reports: None Smoking Status: Never smoker Psychosocial: reports: No issues indicated - Surgical History Gynecologic: reports: section - Obstetrical History : 4 Parity: 3 Events: reports: Previous Complications: reports: Gestational diabetes Results - Echo Results Echo Results: Report reviewed Exam General: Alert, Oriented x3 Dental: WNL Mouth Openin Fingerbreadth Neck Mobility: Normal Mallampati classification: II Thyromental Distance: 4-6 cm Respiratory: Lungs clear Cardiovascular: Regular rate Plan Anesthesia Type: Spinal Consent for Procedure(s) Verified and Reviewed: Yes Code Status: Attempt Resuscitation ASA classification: 2-Mild systemic disease Is this case an emergency?: No
[2023-11-26] MEDS ORDERED: HYDROmorphone 0.5 MG/0.5 ML SYRINGE IVP PRN (08:35)
[2023-11-26] MEDS ORDERED: NALOXONE 0.4 MG/ML VIAL IVP PRN (08:35)
[2023-11-26] MEDS ORDERED: ATROPINE ABBOJECT 1 MG/10 ML SYRINGE IVP PRN (08:35)
[2023-11-26] MEDS ORDERED: ONDANSETRON 4 MG/2 ML VIAL IVP PRN (08:35)
[2023-11-26] MEDS ORDERED: ePHEDrine 50 MG/ML VIAL IVP PRN (08:35)
[2023-11-26] MEDS ORDERED: MORPHINE 2 MG/ML CARPUJECT IVP PRN (08:35)
[2023-11-26] MEDS ORDERED: METOCLOPRAMIDE 10 MG/2 ML VIAL IVP PRN (08:35)
[2023-11-26] MEDS ORDERED: LACTATED RINGERS 1,000 ML IV SCH ×2 (09:00→13:00)
[2023-11-26] MEDS ORDERED: OXYTOCIN/SODIUM CHLORIDE 500 ML IV ONE (09:45)
[2023-11-26] MEDS ORDERED: PHENYLEPHRINE 10 MG/ML VIAL ONE (09:45)
[2023-11-26] MEDS ORDERED: ePHEDrine 50 MG/ML VIAL IVP ONE (09:54)
[2023-11-26] MEDS ORDERED: OXYTOCIN 10 UNIT/ML VIAL ONE (09:55)
[2023-11-26] MEDS ORDERED: ROPIVACAINE 0.5% PF 20 ML VIAL ONE (10:11)
--- NOTE | 2023-11-26 11:27 | PHARMACY PROGRESS NOTE ---
- Best Possible Medication History Admit Date and Time: 11/26/23 0559 Processed by: Pharmacy (Medication Reconciliation completed by Marketing Analytics ManagerBriseida.) Medications reviewed in ED?: No Medication History completed: Yes Patient Interview: Completed Secondary Source(s): Physician records, Insurance records As the person ultimately responsible for medication therapy, providers are able to order a medication from an existing home medication list in [facility] via the "Reconcile Routine" prior to Confirmation of that medication by manager sales support. Such practice is discouraged except when the physician, in their clinical judgment, deems that a medical need exists for a medication without regard to previous use.
[2023-11-26] MEDS ORDERED: SODIUM CHLORIDE 0.9% 10 ML VIAL IVP ONE ×2 (11:40→11:47)
[2023-11-26] MEDS ORDERED: MIDAZOLAM 2 MG/2 ML VIAL ONE (12:01)
[2023-11-26] MEDS ORDERED: fentaNYL 100 MCG/2 ML VIAL ONE (12:01)
[2023-11-26] MEDS ORDERED: KETAMINE 200 MG/20 ML VIAL ONE (12:06)
[2023-11-26] MEDS: LACTATED RINGERS 1,000 ML IV ONE (12:41)
--- NOTE | 2023-11-26 12:46 | OPERATIVE REPORT ---
Operative Report - General Admit Date: 11/26/23 Procedure Date: 11/26/23 Planned Procedure: intraoperative simple cystotomy repair Pre-Op Diagnosis: Bladder injury Procedure Performed: Simple Cystotomy repair Post Op Diagnosis: Bladder Injury - Procedure Note Primary Surgeon: Christian Secondary Surgeon: Lon Anesthesia Technique: Epidural Pathology: none Estimated Blood Loss (mL): 2 Indications: Intraoperative consult Findings: 1cm anterior bladder wall injury Complications: none - Other Other Information/Narrative: Urology was contacted intraoperatively while the patient was undergoing a section. No prior urologic history was identified. Dr. Forrest noted a 1 cm anterior cystotomy after his section procedure. The patient already had a [address] At time presentation patient was on the table with a Pfannenstiel incision, and excellent exposure of her urologic system. A 1 cm anterior cystotomy was identified. 0 Vicryl stay sutures were placed on either side of the cystotomy and this was then lengthened inferiorly approximately 5 cm. We then inspected the bladder itself and saw no posterior cystotomy. Her ureteral orifices were identified and we could see squirting of clear yellow urine from both the left and right ureteral orifices. We then closed the cystotomy in 2 layers with 3-0 Vicryl suture. The first layer was a mucosal layer. The bladder was backfilled with 120 cc of sterile saline and no leak was identified. The patient was then handed back to Dr. Forrest and his team. The plan will be to have the patient have a catheter in place for 1 weeks time. She will have a CT cystogram to confirm adequate healing
[2023-11-26] MEDS ORDERED: ONDANSETRON ODT 4 MG TABLET TL PRN ×2 (12:51)
[2023-11-26] MEDS ORDERED: SIMETHICONE CHEW 80 MG TABLET PO PRN (12:51)
[2023-11-26] MEDS ORDERED: SODIUM CHLORIDE FLUSH 0.9% 10 ML SYRINGE IVP PRN (12:51)
[2023-11-26] MEDS ORDERED: OXYTOCIN/SODIUM CHLORIDE 500 ML IV PRN (12:51)
--- NOTE | 2023-11-26 12:57 | OPERATIVE REPORT ---
Operative Report - General Admit Date: 11/26/23 Procedure Date: 11/26/23 Planned Procedure: Repeat low-transverse section Pre-Op Diagnosis: Previous low-transverse section Procedure Performed: Repeat low-transverse section Cystotomy Cystotomy repair Post Op Diagnosis: Status post repeat low-transverse section - Procedure Note Primary Surgeon: Evangelista Forrest MD Secondary Surgeon: ANNABELLE Gore Anesthesia Provider: Tito Dubois CRNA Anesthesia Technique: Spinal Pathology: None IV Fluids (mL): 2,000 Estimated Blood Loss (mL): 750 Urine Output (mL): 350 Findings: Dense adhesions from the uterus to anterior abdominal wall. Gutters could not be visualized. Uterus and tubes not visualized. Cystotomy noted on backfilling bladder. Repaired per Dr. Alves's notes. Complications: Cystotomy - Other Other Information/Narrative: Patient was a 33-year-old G4, P3 39 weeks gestation who presented for induction of labor secondary to gestational diabetes. History is complicated by 3 previous sections. section was recommended. Risks, benefits and alternatives were discussed including but not limited to infection, bleeding that may require blood products or hysterectomy for life saving measures, injury to surrounding organs including but not limited to bowel, bladder, ureters, tubes and ovaries and/or the baby. Should injury occur it could require longer/additional surgery to repair. The patient stated understanding and desired to proceed. All questions were answered posed by patient. Prior to being taken to the OR, 2 grams of cefazolin IV was administered. The patient was taken to the operating room where regional anesthesia was found to be adequate. She was then prepared and draped in the usual sterile fashion in the dorsal supine position with a leftward tilt displacing the uterus. Carter was draining to gravity. SCDs were on bilateral lower extremities. Time out was taken. A pfannenstiel skin incision was then made with the scalpel and carried through to the underlying layer of fascia. There was dense scar tissue making dissection very difficult. The superior aspect of the facial incision was then grasped with the Lisa clamps, elevated and the underlying rectus muscles dissected off sharply, but the uterus was adhered to the anterior abdominal wall and only a small window was created. The bladder was adhered to the anterior abdominal wall wall up to the maternal right. There is very little differentiation between the uterus and other layers of the abdominal wall, but once identifying, this was incised and entered bluntly. The uterine incision was then extended bluntly laterally. Artificial rupture of membranes demonstrated clear fluid. The bladder blade was removed. The fetus was in a cephalic presentation. The infants head delivered atraumatically. The anterior shoulders were delivered followed by the posterior shoulders then the remainder of the body. The infants mouth and nose were bulb suctioned. The umbilical cord was clamped times two and cut. The was handed to the pediatric team. The placenta was removed with gentle traction. Oxytocin was administered. The uterus was unable to be exteriorized, so it was cleared of all clots and debris in situ. The uterine incision was inspected and found to be without any extensions and was repaired with 0 Vicryl in a running, locked fashion. A second imbricating layer was performed. Upon inspection, the repaired hysterotomy was found to be hemostatic. The uterus was firm. At that point, due to the difficult dissection and concern of the location of the bladder adhered to the scar tissue, the bladder was backfilled and a small, less than 1 cm cystotomy was noted. At that point I called Dr. Gonzales from urology to come and assess. Please see his note for procedure details, but we further opened the bladder and assess ureteral patency. This was then repaired. The gutters were unable to be accessed. The muscle layer was examined and found to be hemostatic. The fascia was reapproximated with 0 Vicryl in a running fashion. The subcutaneous tissue was closed with 2-0 Vicryl. The skin was closed in a subcuticular fashion with 4-0 Monocryl. The patient tolerated the procedure well. Sponge, lap and needle counts were correct times three. The patient was taken to the recovery room in stable condition. I appreciate the assistance of ANNABELLE Gore, Long Gonzales and alek cruz MD during this procedure, and the assistance in retraction, visualization, dissection, and overall assistance during the case were instrumental to the patient's wellbeing.
[2023-11-26] MEDS: fentaNYL 100 MCG/2 ML VIAL IVP PRN (13:07)
--- NOTE | 2023-11-26 13:57 | ANESTHESIA POST OP EVALUATION ---
Anesthesia Post Eval - Post Anesthesia Eval Vitals: Last Vital Signs Temp 36.4 C L 11/26/23 13:33 Pulse 60 11/26/23 13:33 Resp 16 11/26/23 13:33 BP 99/63 11/26/23 13:33 Pulse Ox 97 11/26/23 13:33 O2 Flow Rate CV Function Including HR & BP: Stable Pain Control: Satisfactory Nausea & Vomiting: Negative Mental Status: Baseline Respiratory Status: Airway Patent Hydration Status: Satisfactory Anesthesia Complications: None
[2023-11-26] MEDS: KETOROLAC 30 MG/ML VIAL IVP SCH (14:08)
[2023-11-26] MEDS: ACETAMINOPHEN 500 MG TABLET PO SCH (16:04)
[2023-11-26] MEDS ORDERED: SODIUM CHLORIDE FLUSH 0.9% 10 ML SYRINGE IVP SCH (17:00)
[2023-11-26] MEDS: SOLIFENACIN SUCCINATE 5 MG TABLET PO SCH (18:30)
[2023-11-27] MEDS: DOCUSATE SODIUM 100 MG CAPSULE PO SCH (00:22)
[2023-11-27 05:35] LABS: BASOPHILS % (AUTO) 0.3 %; EOSINOPHILS % (AUTO) 0.3 %; HCT - HEMATOCRIT 31.8 % (37.0-47.0); HGB - HEMOGLOBIN 10.4 g/dL (12.0-16.0); LYMPHOCYTES # (AUTO) 1.2 10^3/uL (1.5-3.5); LYMPHOCYTES % (AUTO) 11.9 %; MEAN CORPUSCULAR HEMOGLOBIN 31.1 pg (27.0-31.0); MEAN CORPUSCULAR HGB CONC 32.7 g/dL (32.0-36.0); MEAN CORPUSCULAR VOLUME 95.2 fL (81.0-99.0); MONOCYTES # (AUTO) 0.7 10^3/uL (0.0-1.0); MONOCYTES % (AUTO) 6.4 %; NEUTROPHILS # (AUTO) 8.3 10^3/uL (1.5-6.6); NEUTROPHILS % (AUTO) 80.6 %; PLT - PLATELET COUNT 152 10^3/uL (130-450); RED BLOOD COUNT 3.34 10^6/uL (4.20-5.40); RED CELL DISTRIBUTION WIDTH 13.2 % (12.0-15.0); WHITE BLOOD COUNT 10.3 x10^3/uL (4.8-10.8)
--- NOTE | 2023-11-27 13:04 | PROVIDER PROGRESS NOTE ---
Subjective - General Admit Date: 11/26/23 Procedure Date: 11/26/23 Post Op Days: 1 Procedure Performed: cystotomy repair - Review of Systems Drain Type: castanon Drain Output Description: cyu Approximate mls Output: 2800 General: positive: No symptoms - Other Other Information/Narrative: Patient states she is doing well. No issues. Catheter is not annoying her. She has noted no spasms. Seen today with her, her children and her Objective - Patient Data Reviewed Vital Signs: Yes Vital Signs: Vital Signs x48h Temp Pulse Resp BP Pulse Ox 11/27/23 09:50 37.1 C 74 16 123/69 98 Weight: Weight 11/25/23 11/26/23 11/27/23 23:59 23:59 23:59 Weight (kg) 82.554 kg Intake & Output: Intake and Output Totals x24h 11/25/23 11/26/23 11/27/23 23:59 23:59 23:59 Intake Total 1000 500 Output Total 1425 2350 Balance -425 -1850 - Lab Results Lab Results: 11/27/23 05:18 Other Lab Results: Lab Results x24hrs 11/27/23 Range/Units 05:18 WBC 10.3 (4.8-10.8) x10^3/uL RBC 3.34 L (4.20-5.40) 10^6/uL Hgb 10.4 L (12.0-16.0) g/dL Hct 31.8 L (37.0-47.0) % MCV 95.2 (81.0-99.0) fL MCH 31.1 H (27.0-31.0) pg MCHC 32.7 (32.0-36.0) g/dL RDW 13.2 (12.0-15.0) % Plt Count 152 (130-450) 10^3/uL MPV 12.0 H (7.9-10.8) fL Neut # (Auto) 8.3 H (1.5-6.6) 10^3/uL Lymph # (Auto) 1.2 L (1.5-3.5) 10^3/uL [place] # (Auto) 0.7 (0.0-1.0) 10^3/uL Eos # (Auto) 0.0 (0.0-0.7) 10^3/uL Baso # (Auto) 0.0 (0.0-0.1) 10^3/uL Absolute Nucleated RBC 0.00 x10^3/uL Nucleated RBC % 0.0 /100WBC - Current Medications Current Medications: Current Medications Generic Name Dose Route Start Last Admin Trade Name Teri PRN Reason Stop Dose Admin Acetaminophen 1,000 mg 11/26/23 13:00 11/27/23 08:14 Acetaminophen 500 Mg Tablet PO 1,000 mg Q8H NAYELY Administration Docusate Sodium 100 mg 11/26/23 21:00 11/27/23 08:15 Docusate Sodium 100 Mg Capsule PO 100 mg BID NAYELY Administration Solifenacin 5 mg 11/26/23 17:00 11/27/23 08:14 Solifenacin Succinate 5 Mg Tablet PO 5 mg DAILY NAYELY Administration - Physical Exam General Appearance: positive: No acute distress Abdomen: positive: Other (castanon in place with CYU) ABX Reporting Has patient been on IV antibiotics over the past 48 hours?: Yes Impression/Plan - Problem List Problem List: 33-year-old woman with small anterior bladder wall injury during section. Repaired primarily. Doing well with catheter in place Castanon catheter remain in place for 1 week. My office will contact her for removal next week. She should go home with 5 mg oxybutynin extended release to take daily for the next week No further change from her routine post section care
[2023-11-27] MEDS: IBUPROFEN 600 MG TABLET PO SCH (14:01)
--- NOTE | 2023-11-27 20:24 | PROVIDER PROGRESS NOTE ---
Subjective - Prog Note Date Prog Note Date: 11/27/23 Prog Note Time: 14:15 - Subjective Subjective: feeling pretty well. catheter is ok. She had a feeling something like that would happen she said. has been up and is ready to get up again and take a sh ower. breast feeding. Objective - Vital Signs/Intake & Output Vital Signs: Vital Signs x48h Temp Pulse Resp BP Pulse Ox 11/27/23 15:58 98.8 F 66 16 109/65 97 Intake & Output: Intake & Output 11/24/23 11/25/23 11/26/23 11/27/23 23:59 23:59 23:59 23:59 Intake Total 1000 500 Output Total 1425 3150 Balance -425 -2650 - Objective General Appearance: positive: No acute distress Abdomen: positive: Other (appropriately tender. bandage removed from wound. appears to be healing well with no erythema. steri strips in place.) Skin: positive: Color nml Extremities: positive: Non-tender, Pedal edema (minimal) - Lab Results Fish Bones: 11/27/23 05:18 Other Labs: Lab Results x24hrs 11/27/23 Range/Units 05:18 WBC 10.3 (4.8-10.8) x10^3/uL RBC 3.34 L (4.20-5.40) 10^6/uL Hgb 10.4 L (12.0-16.0) g/dL Hct 31.8 L (37.0-47.0) % MCV 95.2 (81.0-99.0) fL MCH 31.1 H (27.0-31.0) pg MCHC 32.7 (32.0-36.0) g/dL RDW 13.2 (12.0-15.0) % Plt Count 152 (130-450) 10^3/uL MPV 12.0 H (7.9-10.8) fL Neut # (Auto) 8.3 H (1.5-6.6) 10^3/uL Lymph # (Auto) 1.2 L (1.5-3.5) 10^3/uL [place] # (Auto) 0.7 (0.0-1.0) 10^3/uL Eos # (Auto) 0.0 (0.0-0.7) 10^3/uL Baso # (Auto) 0.0 (0.0-0.1) 10^3/uL Absolute Nucleated RBC 0.00 x10^3/uL Nucleated RBC % 0.0 /100WBC Assessment/Plan - Problem List (1) Delivery by section of full-term Impression: doing well post op. dav will be able to go home tomorrow.
--- NOTE | 2023-11-28 11:42 | DISCHARGE SUMMARY ---
Discharge Summary Admit Date: 11/26/23 Discharge Date: 11/28/23 Discharging Provider: Guzman Maria MD Condition at Discharge: Good Discharge Disposition: 01 Home, Self Care - HPI History of Present Illness: Admission Diagnosis: - SIUP at 39w4d - History of prior delivery x 3 - A2DM on metformin - H/o HSV - Rh + - Rubella equivocal - Varicella immune Discharge Diagnosis: - Same, delivered - Cystotomy, repaired Procedures: Repeat delivery with cystotomy (initial defect 1cm, Dr. Long Gonzales consulted intraoperatively, bladder incision was extended inferiorly approximately 5cm, repaired; EBL 750cc Hospital Course: Sondra is a 33 yo who presented at 39w4d for scheduled repeat delivery. Surgery complicated by adhesive disease and 1cm cystotomy for which Dr. Long Gonzales, urologist, was consulted. The bladder incision was extended inferiorly 5cm, ureters noted to be patent and not involved. EBL 750cc. Plan for castanon catheter and 5mg ER oxybutynin x 7 days. Postoperative course uncomplicated. Condition on Discharge: SUBJECTIVE: day 2 The patient feels well, no concerns. Pain is well controlled with current medications. The baby is doing well. Baby is feeding via She is ambulating well, tolerating normal diet, urinating with castanon. Flatus has been passed Lochia is reported as light. She would like to go home today. OBJECTIVE: Vitals reviewed. GENERAL: NAD CHEST: non labored respirations ABD: soft, appropriately TTP fundus firm INCISION: Incision clean and dry EXT: no lower extremity edema; No evidence of DVT LAB & IMAGING STUDIES: See below PLAN: Plan for discharge home. Will follow up with Dr. Forrest in 1 week for postop check. Will follow up in Urology clinic in 1 week for castanon removal. Reviewed home care instructions and medications. Patient counseled regarding signs and symptoms of infection, excessive bleeding, vaginal rest and activity restrictions. Contraceptive plans to be formalized at visit. - ALLERGIES Allergies/Adverse Reactions: Allergies Allergy/AdvReac Type Severity Reaction Status Date / Time amoxicillin Allergy Unknown Dizziness Verified 11/26/23 12:36 - MEDICATIONS Home Medications: Ambulatory Orders Medication Instructions Recorded Confirmed Ferrous Sulfate Liquid [Feosol 5 ml ORAL DAILY 11/25/23 11/25/23 Liquid] Pnv No.121/Iron/Folic Acid 1 tab ORAL DAILY 11/25/23 11/25/23 [ Multivitamin Tablet] Acetaminophen [Tylenol] 650 mg PO Q6H PRN #30 tab 11/28/23 Ibuprofen [Motrin] 600 mg PO Q6H PRN #30 tab 11/28/23 Sennosides/Docusate Sodium 1 each PO 1-2XD PRN #14 tablet 11/28/23 [Senna-S 8.6-50 mg Tablet] oxyBUTYnin chloride [Oxybutynin 5 mg PO DAILY 7 Days #7 tab 11/28/23 Chloride ER] oxyCODONE [Roxicodone] 5 mg PO Q6H PRN #10 tablet 11/28/23 - LABS Result Diagrams: 11/27/23 05:18
[2023-11-28] MEDS: oxyCODONE 5 MG TABLET PO PRN (15:24)
[2023-11-28] MEDS: MEASLES,MUMPS & RUBELLA VACC 0.5 ML VIAL SUBQ ONE (15:25)
[2023-11-28 16:33] VITALS: BP 119/81; O2SAT 99
--- NOTE | 2023-11-28 16:50 | Labor Flowsheet ---
Labor Flowsheet Datetime Report Generated by CPN: 11/28/2023 16:50 Datetime: 11/26/2023 14:43 VAGINAL EXAM Membranes Ruptured Date/Time: 11/26/2023 11:05 Membranes Rupture Method: Artificial Amniotic Fluid Color: Clear Amniotic Fluid Amount: Moderate Amniotic Fluid Odor: Normal
== END 2023-11-28 16:00 | disposition home or self-care (01) | DRG 787 ==
LOC: FBP 05:50
PROVIDERS: ADMIT Obstetrics & Gynecology; ATTEND Obstetrics & Gynecology
PROC: 0TQB0ZZ Repair Bladder, Open Approach (ICD-10-PCS; 2023-11-26)
PROC: 10907ZC Drainage of Amniotic Fluid, Therapeutic from Products of Conception, Via Natural or Artificial Opening (ICD-10-PCS; 2023-11-26)
PROC: 10D00Z1 Extraction of Products of Conception, Low, Open Approach (ICD-10-PCS; principal; 2023-11-26 08:30)
DX: O34.211 Maternal care for low transverse scar from previous cesarean delivery (principal); N99.71 Accidental puncture and laceration of a genitourinary system organ or structure during a genitourinary system procedure; O98.32 Other infections with a predominantly sexual mode of transmission complicating childbirth; N85.8 Other specified noninflammatory disorders of uterus; Z3A.39 39 weeks gestation of pregnancy; Z37.0 Single live birth; O99.892 Other specified diseases and conditions complicating childbirth; N73.6 Female pelvic peritoneal adhesions (postinfective); O24.425 Gestational diabetes mellitus in childbirth, controlled by oral hypoglycemic drugs; A60.04 Herpesviral vulvovaginitis
CPT/HCPCS: 36415; 85025; 86850; 86900; 86901; A9270; J2795; J3490; J7120